=== PATIENT | male | born 1990 | race Caucasian/White ===

== ENCOUNTER 2025-04-16 06:12 | Day surgery (SDC) | payer BC ==
[2025-04-16] MEDS ORDERED: CEFAZOLIN SODIUM ONE (06:22)
[2025-04-16] MEDS: Lactated Ringers 1,000 ML IV SCH (06:29)
[2025-04-16 06:38] LABS: Hematocrit 42.8 % (40.1-51.0); Hemoglobin 14.3 g/dL (13.7-17.5); Mean Corpuscular Hemoglobin 29.4 pg (25.7-32.2); Mean Corpuscular Hgb Concent. 33.4 g/dL (32.3-36.5); Platelet Count 310 x10^3/uL (163-337); Red Blood Count 4.86 x10^6/uL (4.63-6.08); White Blood Count 8.2 x10^3/uL (4.23-9.07)
[2025-04-16 06:40] VITALS: RESP 18; TEMP 96.8
[2025-04-16] MEDS: Transderm Scop 1.5MG Patch TOP PRN (07:07)
[2025-04-16] MEDS: celeBREX 100 MG PO ONE (07:08)
[2025-04-16] MEDS: NEURONTIN PO ONE (07:08)
[2025-04-16] MEDS: Decadron 4 MG PO ONE (07:08)
[2025-04-16] MEDS: TYLENOL EXTRA STRENGTH 500 MG PO ONE (07:08)
[2025-04-16] MEDS ORDERED: Epinephrine Preservative Free 1 MG/ML ONE (07:13)
[2025-04-16] MEDS ORDERED: Versed 2 MG/2 ML Injection ONE (07:44)
[2025-04-16] MEDS ORDERED: Zofran 4 MG/2 ML VIAL ONE (09:06)
[2025-04-16] MEDS ORDERED: Naropin 0.5% 30 ML VIAL ONE (09:06)
[2025-04-16] MEDS ORDERED: propofoL IV ONE (09:06)
[2025-04-16] MEDS ORDERED: DEMEROL 50 MG ONE (09:15)
[2025-04-16 10:22] VITALS: BP 124/74; PULSE 66; O2SAT 97
--- NOTE | 2025-04-17 10:24 | OP ---
SURGERY DATE/TIME: 04/16/2025 [id number] PREOPERATIVE DIAGNOSIS: Superior labrum anterior posterior (SLAP) lesion right shoulder. POSTOPERATIVE DIAGNOSES: Severe glenohumeral osteoarthritis with loose body and extensive tearing of the glenoid labrum. PROCEDURE: Arthroscopy of the right shoulder with removal of loose body, debridement of the glenoid labrum, and chondroplasty of both the humeral head and glenoid fossa. SURGEON: Niels Russell II, DO ANESTHESIA: General with a block for postop pain control. DESCRIPTION OF PROCEDURE AND FINDINGS: The patient was identified, and informed consent was obtained. The patient was taken to the operative suite where the block was administered as was the general anesthetic. Once an appropriate level of anesthesia had been obtained, the patient was then placed into the left lateral decubitus position with the right side up. The shoulders were rotated back 20 degrees and axillary roll was placed. Bony prominences padded and the ashford bag was then inflated. The right upper extremity was then prepped and draped in the usual sterile fashion and then placed into the abduction traction device with 20 degrees of forward flexion, 40 degrees of lateral opening, and about 10 pounds of longitudinal traction. Standard time-out was then taken. Shoulder had been marked for bony landmarks, and a standard posterior portal was created with an 11 blade. The trocar and cannula were then placed in the glenohumeral joint, which was distended with the arthroscopic pump. An 18-gauge spinal needle identified the level for the anterior working portal and an 11 blade was used to make a small stab wound incision where the trocar was then placed into the joint. At this point, the probe was placed and the glenohumeral joint was inspected in a systematic fashion. The humeral head and glenoid fossa were noted to have extensive degenerative changes with hard, eburnated bone noted on most of the articular bearing surface of the humeral head. Also, a large of grade IV chondromalacia with hard, eburnated bone was noted in the glenoid fossa. There was a flap of articular cartilage which was held with a very small fiber. This was grasped and the loose body was removed. A second loose body was also noted. This was grasped and removed as well. At this point, a chondroplasty was performed of the loose articular cartilage on both the humeral head as well as the glenoid fossa. There was extensive tearing of the glenoid labrum. The anterior labrum was noted to be well attached but having degenerative tearing. There was no peel back. It was debrided with the arthroscopic wand. At the biceps anchor, there was no evidence of peel back and the biceps tendon itself was noted to be intact without evidence of attenuation or tearing. Posteriorly, there was degenerative tearing of the labrum from about the 12:00 position, around to about the 9:00 position. Extensive tearing, but no evidence of peel back or detachment. Debridement was also accomplished with the wand. There was some reactive synovitis which was also treated with the wand. Glenohumeral ligaments were inspected and noted to be intact. The infraglenoid pouch was inspected and there was some mild synovitis which was incidentally shaved. At this point, the shoulder was reinspected and no further pathology identified. The scope was then placed into the bursal space where bursoscopy was performed. There was no significant scuffing of the undersurface of the acromion and the rotator cuff was noted to be intact without evidence of attenuation, tears, or scuffing. The instrumentation was removed, and the portal sites were closed with interrupted 4-0 nylon suture. Adaptics, 4 x 4s, and a standard postop arthroscopy dressing was applied. The patient was placed into a sling, transferred to the cart, and taken to the recovery room in satisfactory condition, having tolerated the procedure well.
== END 2025-04-16 10:35 | disposition home or self-care (01) ==
LOC: SDC 06:12
PROVIDERS: ATTEND Orthopaedic Surgery
DX: S43.431A Superior glenoid labrum lesion of right shoulder, initial encounter (principal); M19.011 Primary osteoarthritis, right shoulder